=== PATIENT | female | born 1995 | race American Indian/Alaskan Native ===

== ENCOUNTER 2019-09-20 15:31 | Emergency (ER) | payer OTHER ==
[2019-09-20 16:06] LABS: Basophils # (Auto) 0.1 K/mm3 (0.0-0.1); Basophils % (Auto) 0.7 % (0.0-1.8); Eosinophils # (Auto) 0.2 K/mm3 (0.0-0.4); Eosinophils % (Auto) 1.9 % (0.0-4.3); Hematocrit 33.6 % (30.3-42.9); Lymphocytes # (Auto) 2.4 K/mm3 (1.2-5.4); Mean Corpuscular HGB Conc 33 % (30-34); Mean Corpuscular Volume 74 fl (79-97); Monocytes # (Auto) 0.9 K/mm3 (0.0-0.8); Monocytes % (Auto) 9.2 % (0.0-7.3); Platelet Count 335 K/mm3 (140-440); Red Blood Count 4.57 M/mm3 (3.65-5.03); Red Cell Distribution Width 21.3 % (13.2-15.2)
--- NOTE | 2019-09-20 17:36 | Emergency Department Report ---
<JUAN A LANDERS - Last Filed: 09/20/19 17:34> ED HPI - General Chief complaint: Vaginal Bleeding Stated complaint: POSS MISCARRIAGE Time Seen by Provider: 09/20/19 16:24 Source: patient Mode of arrival: Ambulatory Limitations: No Limitations - History of Present Illness Initial comments: Patient is a 24-year-old female who is approximately 8 weeks who started having some vaginal bleeding. Patient states she was seen 3 days ago at an outside clinic and was told she had a 8 week gestational sac but no pole was seen. The patient was not bleeding at that time. Patient started bleeding and states she is passing some small clots. The patient had blood work done but does not know what her Quant was. Patient states she has mild lower abdominal discomfort. - Related Data Previous Rx's Medication Instructions Recorded Last Taken Type Acetaminophen [Acetaminophen TAB] 650 mg PO Q6HR PRN #30 tablet 09/20/19 Unknown Rx Allergies Allergy/AdvReac Type Severity Reaction Status Date / Time No Known Allergies Allergy Unverified 09/20/19 15:34 ED Review of Systems Comment: All other systems reviewed and negative ED Past Medical Hx - Past Medical History Previous Medical History?: No - Surgical History Past Surgical History?: No - Social History Smoking Status: Never Smoker - Medications Home Medications: Home Medications Medication Instructions Recorded Confirmed Last Taken Type Acetaminophen [Acetaminophen TAB] 650 mg PO Q6HR PRN #30 tablet 09/20/19 Unknown Rx ED Physical Exam - General Limitations: No Limitations General appearance: alert, in no apparent distress - Head Head exam: Present: atraumatic, normocephalic - Eye Eye exam: Present: normal appearance. Absent: PERRL, EOMI - ENT ENT exam: Present: mucous membranes moist - Neck Neck exam: Present: normal inspection - Respiratory Respiratory exam: Present: normal lung sounds bilaterally. Absent: respiratory distress, rales, rhonchi - Cardiovascular Cardiovascular Exam: Present: regular rate, normal rhythm. Absent: systolic murmur, diastolic murmur, rubs, gallop - GI/Abdominal GI/Abdominal exam: Present: soft, normal bowel sounds. Absent: distended, tenderness, guarding, rebound - Extremities Exam Extremities exam: Present: normal inspection - Back Exam Back exam: Present: normal inspection - Neurological Exam Neurological exam: Present: alert, oriented X3 - Psychiatric Psychiatric exam: Present: normal affect, normal mood - Skin Skin exam: Present: warm, dry, intact, normal color. Absent: rash ED Course - Reevaluation(s) Reevaluation #1: 09/20/19 17:36 Patient was Rh+ and did not require RhoGAM. Patient will be sent for ultrasound and Quant has been ordered. ED Medical Decision Making - Lab Data Result diagrams: 09/20/19 15:42 Lab Results 09/20/19 09/20/19 09/20/19 Range/Units 15:42 15:42 15:42 WBC 9.4 (4.5-11.0) K/mm3 RBC 4.57 (3.65-5.03) M/mm3 Hgb 11.0 (10.1-14.3) gm/dl Hct 33.6 (30.3-42.9) % MCV 74 L (79-97) fl MCH 24 L (28-32) pg MCHC 33 (30-34) % RDW 21.3 H (13.2-15.2) % Plt Count 335 (140-440) K/mm3 Lymph % (Auto) 25.0 (13.4-35.0) % [place] % (Auto) 9.2 H (0.0-7.3) % Eos % (Auto) 1.9 (0.0-4.3) % Baso % (Auto) 0.7 (0.0-1.8) % Lymph # 2.4 (1.2-5.4) K/mm3 [place] # 0.9 H (0.0-0.8) K/mm3 Eos # 0.2 (0.0-0.4) K/mm3 Baso # 0.1 (0.0-0.1) K/mm3 Seg Neutrophils % 63.2 (40.0-70.0) % Seg Neutrophils # 6.0 (1.8-7.7) K/mm3 HCG, Qual Positive (Negative) HCG, Quant 9603 H (0-4) mIU/mL Blood Type 09/20/19 Range/Units 15:42 WBC (4.5-11.0) K/mm3 RBC (3.65-5.03) M/mm3 Hgb (10.1-14.3) gm/dl Hct (30.3-42.9) % MCV (79-97) fl MCH (28-32) pg MCHC (30-34) % RDW (13.2-15.2) % Plt Count (140-440) K/mm3 Lymph % (Auto) (13.4-35.0) % [place] % (Auto) (0.0-7.3) % Eos % (Auto) (0.0-4.3) % Baso % (Auto) (0.0-1.8) % Lymph # (1.2-5.4) K/mm3 [place] # (0.0-0.8) K/mm3 Eos # (0.0-0.4) K/mm3 Baso # (0.0-0.1) K/mm3 Seg Neutrophils % (40.0-70.0) % Seg Neutrophils # (1.8-7.7) K/mm3 HCG, Qual (Negative) HCG, Quant (0-4) mIU/mL Blood Type O POSITIVE ED Disposition Clinical Impression: Blighted ovum, Threatened miscarriage Ovarian cyst Qualifiers: Laterality: left Qualified Code(s): N83.202 - Unspecified ovarian cyst, left side Disposition: - TO HOME OR SELFCARE Condition: Stable Instructions: Threatened Miscarriage (ED), Ovarian Cyst (ED) Prescriptions: Acetaminophen [Acetaminophen TAB] 650 mg PO Q6HR PRN #30 tablet PRN Reason: Pain Referrals: OMAR MAURO CNM [Advanced Practice Nurse] - 3-5 Days [facility] [Provider Group] - 3-5 Days Forms: Work/School Release Form(ED) <PATIENCE FREDERICK - Last Filed: 09/20/19 20:19> ED Review of Systems ROS: Stated complaint: POSS MISCARRIAGE Other details as noted in HPI ED Course Vital Signs 09/20/19 15:36 Temperature 98.2 F Pulse Rate 75 Respiratory 16 Rate Blood Pressure 124/72 O2 Sat by Pulse 96 Oximetry ED Medical Decision Making - Lab Data Result diagrams: 09/20/19 15:42 - Radiology Data Radiology results: report reviewed, image reviewed Ordering Physician: JUAN A LANDERS MD Date of Service: 09/20/19 Procedure(s): US OB <= 14 weeks fetus Accession Number(s): [id number] cc: JUAN A LANDERS MD OB ultrasound FINDINGS: There is a fluid-filled cystic structure in the endometrial cavity of the fundus with a measurement of 7 weeks 0 days. There is no pole or yolk sac identified however but there may be a decidual reaction. The appearance suggests blighted ovum. There is also an adjacent hypoechoic area measuring 1.5 cm which may be a subchorionic hemorrhage. Both ovaries are seen and are normal with no evidence of ectopic . No free fluid seen. IMPRESSION: Ordering Physician: JUAN A LANDERS MD Date of Service: 09/20/19 Procedure(s): US OB <= 14 weeks fetus Accession Number(s): [id number] cc: JUAN A LANDERS MD OB ultrasound FINDINGS: There is a fluid-filled cystic structure in the endometrial cavity of the fundus with a measurement of 7 weeks 0 days. There is no pole or yolk sac identified however but there may be a decidual reaction. The appearance suggests blighted ovum. There is also an adjacent hypoechoic area measuring 1.5 cm which may be a subchorionic hemorrhage. Both ovaries are seen and are normal with no evidence of ectopic . No free fluid seen. IMPRESSION: Possible blighted ovum. Correlation with beta hCG levels or follow- up ultrasound may be of benefit. Signer Name: Raz Cheney MD Signed: 09/20/2019 5:47 PM Workstation Name: [id number] Transcribed By: DONI Dictated By: Raz Cheney MD Electronically Authenticated By: Raz Cheney MD Signed Date/Time: 09/20/191746 DD/ 44 TD/TT: Signer Name: Raz Cheney MD Signed: 09/20/2019 5:47 PM Workstation Name: [id number] Transcribed By: DONI Dictated By: Raz Cheney MD Electronically Authenticated By: Raz Cheney MD Signed Date/Time: 09/20/191746 DD/ 44 TD/TT: - Medical Decision Making Possible blighted ovum. , bleeding is scant, Blood type is O pos, pt has good OBGYN follow up Dr. Omar Mauro, [facility] [place], has appointment in 2 days, will follow with same for , for HCG, pt will be dc'd to home in stable condition at this time, Critical care attestation.: If time is entered above; I have spent that time in minutes in the direct care of this critically ill patient, excluding procedure time. ED Disposition Is pt being admited?: No Does the pt Need Aspirin: No Time of Disposition: 20:18
--- NOTE | 2019-09-20 17:51 | Ultrasound Report ---
OB ultrasound FINDINGS: There is a fluid-filled cystic structure in the endometrial cavity of the fundus with a camila surement of 7 weeks 0 days. There is no pole or yolk sac identified however but there may be a decidual reaction. The appearance suggests blighted ovum. There is also an adjacent hypoechoic area m easuring 1.5 cm which may be a subchorionic hemorrhage. Both ovaries are seen and are normal with no evidence of ectopic . No free fluid seen. IMPRESSION: Possible blighted ovum. Correlation with beta hCG levels or follow-up ultrasound may be o f benefit. Signer Name: Raz Cheney MD Signed: 09/20/2019 5:47 PM Workstation Name: [id number]
[2019-09-20 17:59] LABS: Bilirubin,Urine NEG (Negative); Blood,Urine LG (Negative); Color,Urine Yellow (Yellow); Mucus,Urine FEW /HPF; Protein,Urine <15 mg/dL mg/dL (Negative); Urobilinogen,Urine < 2.0 mg/dL (<2.0)
[2019-09-20 20:30] VITALS: BP 122/80
== END 2019-09-20 20:30 | disposition home or self-care (01) ==
LOC: ED 15:31
DX: O20.0 Threatened abortion (principal); O02.0 Blighted ovum and nonhydatidiform mole; Z3A.08 8 weeks gestation of pregnancy
CPT/HCPCS: 36415; 76801; 76817; 81001; 84702; 84703; 85025; 86900; 86901

== ENCOUNTER 2022-07-30 12:10 | Emergency (ER) | payer OTHER ==
[2022-07-30 16:27] LABS: Hematocrit 31.1 % (30.3-42.9); Hemoglobin 10.4 gm/dl (10.1-14.3); Mean Corpuscular HGB Conc 34 % (30-34); Mean Corpuscular Volume 75 fl (79-97); Platelet Count 362 K/mm3 (140-440); Red Blood Count 4.16 M/mm3 (3.65-5.03)
[2022-07-30 16:33] LABS: Red Cell Distribution Width 20.4 % (13.2-15.2)
--- NOTE | 2022-07-30 16:50 | Ultrasound Report ---
ULTRASOUND OBSTETRIC INDICATION / CLINICAL INFORMATION: abd pain, 11 weeks , vomiting. - Clinical Gestational Age (GA) in weeks, days: 11, 1 TECHNIQUE: Transabdominal. COMPARISON: None available. FINDINGS: GESTATIONAL SAC: Well-defined oval shape and intrauterine in location. YOLK SAC: No significant abnormality. EMBRYO/FETUS: No significant abnormality. - [place]-Rump Length = 4.3 cm = 11, 1 weeks, days - Heart Rate, beats per minute (if present) = 168 UTERUS: Small posterior subchorionic bleed measuring 1.4 x 0.7 x 0.9 cm. ADNEXA: No significant abnormality. FREE FLUID: None. ADDITIONAL FINDINGS: None. IMPRESSION: 1. Single, living intrauterine with estimated sonographic age of 11, 1 weeks, days. 2. Small posterior subchorionic bleed. Signer Name: Champ Stanton MD Signed: 07/30/2022 4:45 PM Workstation Name: [id number]
[2022-07-30] MEDS ORDERED: FAMOTIDINE 20 MG/2 ML INJ IV ONE (17:23)
[2022-07-30] MEDS ORDERED: SODIUM CHLORIDE 0.9% 1000 ML 1,000 ML IV ONE ×2 (17:23)
[2022-07-30] MEDS ORDERED: ONDANSETRON 4 MG/2 ML INJ IV ONE (17:23)
[2022-07-30] MEDS ORDERED: diphenhydrAMINE 50 MG/ML VIAL IV ONE (17:23)
[2022-07-30 17:39] VITALS: BP 163/82
[2022-07-30 17:55] LABS: Alanine Aminotransferase 19 units/L (7-56); Albumin 4.2 g/dL (3.9-5); Blood Urea Nitrogen 5 mg/dL (7-17); Calcium 9.9 mg/dL (8.4-10.2); Hemolysis Index 4
[2022-07-30 18:08] LABS: BUN/Creatinine Ratio 13
[2022-07-30] MEDS ORDERED: LIDOCAINE VISCOUS 2% 15 ML ORAL LIQD PO ONE (20:49)
[2022-07-30] MEDS ORDERED: ALUM-MAG HYDROXIDE-SIMETHICONE 200-200-20MG/5ML ORAL LIQD 30 ML PO ONE (20:49)
--- NOTE | 2022-07-30 20:49 | Emergency Department Report ---
ED N/V/D HPI - General Chief complaint: Nausea/Vomiting/Diarrhea Stated complaint: 11WKS PREG VOMITING BLOOD Time Seen by Provider: 07/30/22 16:39 Source: patient Mode of arrival: Ambulatory Limitations: No Limitations - History of Present Illness Initial comments: 26-year-old female who is approximate 11 weeks presenting with vomiting. Patient reports she has been vomiting constantly since June which found her she was . States she sees PECAN GATHERER across the street, currently taking Phenergan without improvement. She is a 3 para 0 miscarriage 1 1 Symptoms associated weakness, dizziness, fatigue, chest pain. She denies vaginal bleeding, no water leakage, no discharge, no fever. MD complaint: nausea, vomiting - Related Data Previous Rx's Medication Instructions Recorded Last Taken Type Acetaminophen [Acetaminophen TAB] 650 mg PO Q6HR PRN #30 tablet 09/20/19 Unknown Rx Famotidine [Pepcid] 40 mg PO QHS #60 07/30/22 Unknown Rx Ondansetron [Zofran Odt] 4 mg PO Q8HR PRN #30 tab.rapdis 07/30/22 Unknown Rx Promethazine HCl [Phenergan SUPPOS] 25 mg RC TID PRN #30 07/30/22 Unknown Rx Allergies Allergy/AdvReac Type Severity Reaction Status Date / Time CASHEWS Allergy Swelling Uncoded 07/30/22 12:48 ALMONDS AdvReac Swelling Uncoded 07/30/22 12:48 ED Review of Systems ROS: Stated complaint: 11WKS PREG VOMITING BLOOD Other details as noted in HPI Constitutional: see HPI ENT: as per HPI Respiratory: denies: cough Cardiovascular: chest pain. denies: palpitations, orthopnea, edema Endocrine: denies: excessive sweating, flushing Gastrointestinal: abdominal pain, nausea, vomiting. denies: diarrhea, constipation, melena Genitourinary: denies: urgency, frequency, discharge Musculoskeletal: denies: back pain Skin: denies: rash Neurological: weakness. denies: headache, numbness Psychiatric: denies: visual hallucinations, homicidal thoughts, suicidal thoughts ED Past Medical Hx - Past Medical History Previous Medical History?: No - Surgical History Past Surgical History?: No - Social History Smoking Status: Never Smoker Substance Use Type: None - Medications Home Medications: Home Medications Medication Instructions Recorded Confirmed Last Taken Type Acetaminophen [Acetaminophen TAB] 650 mg PO Q6HR PRN #30 tablet 09/20/19 Unknown Rx Famotidine [Pepcid] 40 mg PO QHS #60 07/30/22 Unknown Rx Ondansetron [Zofran Odt] 4 mg PO Q8HR PRN #30 tab.rapdis 07/30/22 Unknown Rx Promethazine HCl [Phenergan SUPPOS] 25 mg RC TID PRN #30 07/30/22 Unknown Rx ED Physical Exam - General Limitations: No Limitations General appearance: alert, in no apparent distress, other (Puny ill appearing) - Head Head exam: Present: atraumatic - Eye Eye exam: Present: normal appearance, PERRL - ENT ENT exam: Present: normal exam, normal orophraynx - Neck Neck exam: Present: normal inspection. Absent: tenderness - Respiratory Respiratory exam: Present: normal lung sounds bilaterally. Absent: respiratory distress - Cardiovascular Cardiovascular Exam: Present: regular rate, normal rhythm - GI/Abdominal GI/Abdominal exam: Present: soft. Absent: tenderness - Extremities Exam Extremities exam: Present: normal inspection, full ROM - Back Exam Back exam: Present: normal inspection, full ROM - Neurological Exam Neurological exam: Present: alert, oriented X3, CN II-XII intact, normal gait. Absent: motor sensory deficit - Psychiatric Psychiatric exam: Present: normal affect, normal mood - Skin Skin exam: Present: warm, dry, intact, normal color ED Course Vital Signs 07/30/22 07/30/22 07/30/22 12:52 17:36 21:28 Temperature 98.6 F 98.4 F 98.4 F Pulse Rate 89 75 75 Respiratory 18 18 18 Rate Blood Pressure 141/107 163/82 Blood Pressure 163/82 163/82 [Left] O2 Sat by Pulse 100 98 98 Oximetry ED Medical Decision Making - Lab Data Result diagrams: 07/30/22 15:53 07/30/22 15:53 - Medical Decision Making 26-year-old female who is approximate 11 weeks presenting with vomiting. Patient reports she has been vomiting constantly since June which found her she was . States she sees PECAN GATHERER across the street, currently taking Phenergan without improvement. She is a 3 para 0 miscarriage 1 1 Symptoms associated weakness, dizziness, fatigue, chest pain. She denies vaginal bleeding, no water leakage, no discharge And labs are reassuring, patient has been rehydrated, replenished with IV fluids, antiemetics, she is now tolerating ice chips and liquids, not vomiting, her vital signs are stable, she is afebrile she is ambulating steadily no guarding, no pain, no vaginal bleeding. Patient can follow-up outpatient with her OB. Reporting some antiemetics also help as well as dietary management with understanding. Her ultrasound is reassuring 1 intrauterine at 11 weeks 1 day, with a small subchorionic hemorrhage. Patient remained stable nontoxic-appearing, afebrile, ambulating steadily without assistance. Gone over ED findings with patient as well as plan for fol low-up. Also discussed return precautions with patient, all questions and concerns addressed. Patient is stable to be discharged follow-up outpatient. Audio voice dictation device used, hence the chart might contain some dictation errors, mispronunciations, wrong spelling and wrong verbiage. Critical care attestation.: If time is entered above; I have spent that time in minutes in the direct care of this critically ill patient, excluding procedure time. ED Disposition Clinical Impression: 11 weeks gestation of , Hyperemesis gravidarum, Subchorionic hemorrhage Disposition: HOME / SELF CARE / HOMELESS Is pt being admited?: No Does the pt Need Aspirin: No Condition: Stable Instructions: Hyperemesis Gravidarum Prescriptions: Famotidine [Pepcid] 40 mg PO QHS #60 Promethazine HCl [Phenergan SUPPOS] 25 mg RC TID PRN #30 PRN Reason: Vomiting Ondansetron [Zofran Odt] 4 mg PO Q8HR PRN #30 tab.rapdis PRN Reason: Vomiting Referrals: PRIMARY CARE, [Primary Care Provider] - 3-5 Days JAMES KAHN MD [Staff Physician] - 3-5 Days Forms: Work/School Release Form(ED)
[2022-07-30 21:26] LABS: Color,Urine Colorless (Yellow)
[2022-07-30 21:30] LABS: Mucus,Urine 2+ /HPF
== END 2022-07-30 21:29 | disposition home or self-care (01) ==
LOC: ED 12:10
DX: O21.0 Mild hyperemesis gravidarum (principal); O20.8 Other hemorrhage in early pregnancy; Z3A.11 11 weeks gestation of pregnancy; Z91.010 Allergy to peanuts
CPT/HCPCS: 36415; 76801; 80053; 81001; 84703; 85027; 96361; 96374; 96375; 99284; J1200; J2405; J3490; J7030